=== PATIENT | male | born 1960 | race Caucasian/White ===

== ENCOUNTER 2018-09-10 16:30 | Emergency (ER) | payer MEDICAID ==
[~2018-09-10] VITALS: Ht 188 cm; Wt 158.2 kg
[~2018-09-10 16:30] MED LIST: FURO40TA4 PO; Hydralazine Hcl PO; POTA20TA10 PO
[2018-09-10 17:20] LABS: BASOPHILS # (AUTO) 0.1 X10'3 (0-0.2); BASOPHILS % (AUTO) 1.2 % (0-1); EOSINOPHILS # (AUTO) 0.5 X10'3 (0-0.9); HEMATOCRIT 43.9 % (42.0-52.0); HEMOGLOBIN 14.8 g/dl (14.0-17.9); LYMPHOCYTES % (AUTO) 22.5 % (21-51); MEAN CORPUSCULAR HEMOGLOBIN 30.6 PG (27.0-31.0); MEAN CORPUSCULAR HGB CONC 33.8 g/dL (33.0-36.5); MEAN CORPUSCULAR VOLUME 90.4 FL (78-98); MEAN PLATELET VOLUME 9.9 FL (7.4-10.4); MONOCYTES # (AUTO) 0.8 X10'3 (0-0.9); MONOCYTES % (AUTO) 9.4 % (2-12); NEUTROPHILS # (AUTO) 5.6 X10'3 (1.8-7.7); NEUTROPHILS % (AUTO) 61.9 % (42-75); PLATELET COUNT 284 X10'3 (140-440); RED BLOOD COUNT 4.86 X10'6 (4.70-6.10); RED CELL DISTRIBUTION WIDTH 13.6 % (11.5-14.5); WHITE BLOOD COUNT 9.1 X10'3 (4.5-11.0)
[2018-09-10 17:36] LABS: ALANINE AMINOTRANSFERASE 55 U/L (12-78); ALBUMIN 3.2 G/DL (3.4-5.0); ALBUMIN/GLOBULIN RATIO 0.8 (1.1-1.5); ALKALINE PHOSPHATASE 132 IU/L (46-116); ANION GAP 9 (8-16); ASPARTATE AMINO TRANSFERASE 28 U/L (10-37); BILIRUBIN,TOTAL 0.3 MG/DL (0.1-1.0); BLOOD UREA NITROGEN 18 MG/DL (7-18); BUN/CREATININE RATIO 20.7 (5.4-32.0); CALCIUM 8.9 MG/DL (8.5-10.1); CHLORIDE 106 MMOL/L (99-107); CREATININE 0.87 MG/DL (0.60-1.10); GLUCOSE 80 MG/DL (70-104); POTASSIUM 4.3 MMOL/L (3.5-5.1); SODIUM 141 MMOL/L (135-145); TOTAL CARBON DIOXIDE 25.9 MMOL/L (24-32); TOTAL PROTEIN 7.4 G/DL (6.4-8.2); eGFR 90 ML/MIN
[2018-09-10 17:49] LABS: PARTIAL THROMBOPLASTIN TIME 33 SECONDS (22-32); PROTHROMBIN TIME 10.2 SECONDS (9.0-12.0)
[2018-09-10 18:15] VITALS: BP 140/115
== END 2018-09-10 19:09 | disposition home or self-care (01) ==
LOC: ER 16:30
DX: R60.9 Edema, unspecified (principal); R06.02 Shortness of breath; Z88.0 Allergy status to penicillin; Z79.899 Other long term (current) drug therapy
CPT/HCPCS: 36415; 71045; 80053; 84484; 85025; 85610; 85730; 93005; 99284

== ENCOUNTER 2019-05-04 04:15 | Inpatient (IN) | payer MEDICAID ==
[~2019-05-04] VITALS: Ht 188 cm; Wt 135.0 kg
[2019-05-04 04:47] LABS: BASOPHILS % (AUTO) 0.3 % (0-1); EOSINOPHILS # (AUTO) 0.5 X10'3 (0-0.9); EOSINOPHILS % (AUTO) 4.5 % (0-6); HEMATOCRIT 43.1 % (42.0-52.0); HEMOGLOBIN 14.7 g/dl (14.0-17.9); LYMPHOCYTES # (AUTO) 3.6 X10'3 (1.1-4.8); LYMPHOCYTES % (AUTO) 31.5 % (21-51); MEAN CORPUSCULAR HEMOGLOBIN 31.3 PG (27.0-31.0); MEAN CORPUSCULAR HGB CONC 34.2 g/dL (33.0-36.5); MEAN CORPUSCULAR VOLUME 91.5 FL (78-98); MONOCYTES % (AUTO) 8.8 % (2-12); NEUTROPHILS # (AUTO) 6.4 X10'3 (1.8-7.7); NEUTROPHILS % (AUTO) 54.9 % (42-75); PLATELET COUNT 264 X10'3 (140-440); RED CELL DISTRIBUTION WIDTH 13.6 % (11.5-14.5); WHITE BLOOD COUNT 11.6 X10'3 (4.5-11.0)
[2019-05-04 04:56] LABS: PARTIAL THROMBOPLASTIN TIME 29 SECONDS (22-32)
[2019-05-04 04:59] LABS: ALANINE AMINOTRANSFERASE 35 U/L (12-78); ALBUMIN 3.2 G/DL (3.4-5.0); ALBUMIN/GLOBULIN RATIO 0.8 (1.1-1.5); ALKALINE PHOSPHATASE 139 IU/L (46-116); ANION GAP 7 (8-16); ASPARTATE AMINO TRANSFERASE 20 U/L (10-37); BILIRUBIN,TOTAL 0.2 MG/DL (0.1-1.0); BLOOD UREA NITROGEN 11 MG/DL (7-18); BUN/CREATININE RATIO 11.7 (5.4-32.0); CALCIUM 8.9 MG/DL (8.5-10.1); CHLORIDE 105 MMOL/L (99-107); CREATININE 0.94 MG/DL (0.60-1.10); GLUCOSE 160 MG/DL (70-104); POTASSIUM 3.8 MMOL/L (3.5-5.1); SODIUM 138 MMOL/L (135-145); TOTAL CARBON DIOXIDE 26.3 MMOL/L (24-32); TOTAL PROTEIN 7.4 G/DL (6.4-8.2); eGFR 82 ML/MIN
[2019-05-04] MEDS ORDERED: iohexol 350MG/ML 100ml bottle IV ONE (04:59)
[2019-05-04] MEDS ORDERED: morphine 4 MG/ML inj SYRINge IV ONE ×2 (05:00→05:40)
[2019-05-04 05:32] LABS: D-DIMER 0.91 MG/L FEU (0-0.50)
[2019-05-04] MEDS ORDERED: nitroGLYCERIN 0.4mg/hour patch TD ONE (06:15)
[2019-05-04] MEDS ORDERED: aspirin 81mg tab.chew PO ONE (06:15)
--- NOTE | 2019-05-04 07:59 | NUR ---
PT UP AMBULATING TO BR FOR [facility]. HOSPITALIST HERE TO ADMIT PT.
[2019-05-04 08:32] LABS: CLARITY,URINE CLEAR (Clear); COLOR,URINE STRAW (Yellow); GLUCOSE, URINE NEGATIVE (Neg); KETONES,URINE NEGATIVE (Neg); LEUKOCYTE ESTERASE ,URINE NEGATIVE (Neg); NITRITES, URINE NEGATIVE (Neg); OCCULT BLOOD,URINE NEGATIVE (Neg); PH,URINE 7.5 (4.8-8.0); PROTEIN,URINE NEGATIVE (Neg); UROBILINOGEN,URINE 0.2 E.U/dL (0.2-1.0)
[2019-05-04 08:33] LABS: UA COLLECTION TYPE CLN CATCH MIDSTREAM
[2019-05-04] MEDS ORDERED: normal saline 1000ml 1,000 ML IV SCH (08:33)
[2019-05-04] MEDS ORDERED: HYDROcodone/acetaminophen 5mg/325mg tablet PO PRN (08:35)
[2019-05-04] MEDS ORDERED: mag hydrox/Alum hydrox/simeth 30ml oral suspension PO PRN (08:35)
[2019-05-04] MEDS ORDERED: potassium Cl 20 mEq SR tablet PO PRN ×2 (08:35)
[2019-05-04] MEDS ORDERED: ondansetron/PF 4mg/2ml inj IV PRN (08:35)
[2019-05-04] MEDS ORDERED: magnesium 4gm in 100ml NS 100 ML IV PRN (08:35)
[2019-05-04] MEDS ORDERED: potassium CL 10mEq/100ml bag 100 ML IV PRN ×2 (08:35)
[2019-05-04] MEDS ORDERED: magnesium Cl slow-release 64mg tablet PO PRN (08:35)
[2019-05-04] MEDS ORDERED: acetaminophen 325mg tablet PO PRN ×2 (08:35)
[2019-05-04] MEDS ORDERED: magnesium 2GM in 50ml NS 50 ML IV PRN (08:35)
[2019-05-04] MEDS ORDERED: magnesium hydroxide 30ml (MOM) UD suspension PO PRN (08:35)
[2019-05-04 11:00] VITALS: BP 182/89
[2019-05-04] MEDS ORDERED: hydrALAZINE 20mg/ml inj. IV PRN (11:00)
[2019-05-04] MEDS ORDERED: FURO-149 PO (12:04)
[2019-05-04] MEDS ORDERED: LISI10TA4 PO (12:04)
[2019-05-04] MEDS ORDERED: ASPI81TA52 PO (12:04)
[2019-05-04] MEDS ORDERED: CARV3.122 PO (12:04)
[2019-05-04] MEDS: lisinopril 20mg tablet PO SCH (12:21)
--- NOTE | 2019-05-04 13:16 | NUR ---
PT REFUSED TO RN SKIN CHECK. MOST OF HIS SKIN WAS VISIBLE. SCAB ON LEFT HAND.
[2019-05-04] MEDS ORDERED: amLODIPine 5mg tablet PO SCH (13:20)
[2019-05-04 13:52] VITALS: BP 161/79
[2019-05-04 14:50] LABS: HEMATOCRIT 42.2 % (42.0-52.0); HEMOGLOBIN 14.6 g/dl (14.0-17.9); MEAN CORPUSCULAR HEMOGLOBIN 31.9 PG (27.0-31.0); MEAN CORPUSCULAR HGB CONC 34.6 g/dL (33.0-36.5); MEAN CORPUSCULAR VOLUME 92.3 FL (78-98); MEAN PLATELET VOLUME 10.5 FL (7.4-10.4); PLATELET COUNT 266 X10'3 (140-440); RED BLOOD COUNT 4.57 X10'6 (4.70-6.10); RED CELL DISTRIBUTION WIDTH 13.6 % (11.5-14.5); WHITE BLOOD COUNT 12.2 X10'3 (4.5-11.0)
[2019-05-04] MEDS: furosemide 40mg tablet PO SCH (15:49)
[2019-05-04 15:50] VITALS: BP 179/89
[2019-05-04] MEDS: HYDROcodone/acetaminophen 10/325mg tab PO PRN ×2 (15:51→20:41)
--- NOTE | 2019-05-04 17:39 | NUR ---
pt states he does not want a flu shot and please don't ask
[2019-05-04 17:52] VITALS: BP 171/84
--- NOTE | 2019-05-04 17:52 | NUR ---
PT HAD BP OF 171/84 GAVE HYDRALAZINE .5 ML
--- NOTE | 2019-05-04 18:23 | NUR ---
GAVE REPORT TO MALENA GUY RN
--- NOTE | 2019-05-04 18:30 | NUR ---
Patient in room [facility]. I have received report from LEI HOFF and had the opportunity to ask questions and assume patient care.
[2019-05-04 20:00] VITALS: BP 143/61
[2019-05-04] MEDS: carVEDilol 3.125mg tablet PO SCH (20:40)
[2019-05-04] MEDS ORDERED: temazepam 15mg capsule PO PRN (21:00)
[2019-05-04 22:45] LABS: HEMATOCRIT 42.4 % (42.0-52.0); HEMOGLOBIN 14.1 g/dl (14.0-17.9); MEAN CORPUSCULAR HEMOGLOBIN 30.9 PG (27.0-31.0); MEAN CORPUSCULAR HGB CONC 33.3 g/dL (33.0-36.5); MEAN CORPUSCULAR VOLUME 92.7 FL (78-98); MEAN PLATELET VOLUME 10.2 FL (7.4-10.4); PLATELET COUNT 258 X10'3 (140-440); RED BLOOD COUNT 4.58 X10'6 (4.70-6.10); RED CELL DISTRIBUTION WIDTH 13.7 % (11.5-14.5); WHITE BLOOD COUNT 13.1 X10'3 (4.5-11.0)
[2019-05-05] VITALS: BP 130/68
[2019-05-05] MEDS: HYDROcodone/acetaminophen 10/325mg tab PO PRN ×2 (03:46→20:05)
--- NOTE | 2019-05-05 06:24 | NUR ---
Problems reprioritized. Patient report given, questions answered & plan of care reviewed with LEI HOFF.
--- NOTE | 2019-05-05 06:54 | NUR ---
Patient in room [facility]. I have received report from MALENA GUY RN and had the opportunity to ask questions and assume patient care.
[2019-05-05 07:00] VITALS: BP_SYST 115; BP_SYST 154; BP_DIAS 51; BP_DIAS 59
[2019-05-05 07:02] LABS: HEMOGLOBIN 14.9 g/dl (14.0-17.9); MEAN CORPUSCULAR VOLUME 91.5 FL (78-98)
[2019-05-05 07:03] LABS: HEMATOCRIT 44.2 % (42.0-52.0); MEAN CORPUSCULAR HEMOGLOBIN 30.8 PG (27.0-31.0); MEAN CORPUSCULAR HGB CONC 33.7 g/dL (33.0-36.5); MEAN PLATELET VOLUME 10.1 FL (7.4-10.4); PLATELET COUNT 268 X10'3 (140-440); RED BLOOD COUNT 4.83 X10'6 (4.70-6.10); RED CELL DISTRIBUTION WIDTH 13.5 % (11.5-14.5); WHITE BLOOD COUNT 12.7 X10'3 (4.5-11.0)
[2019-05-05 07:38] LABS: ALBUMIN 2.8 G/DL (3.4-5.0); ANION GAP 6 (8-16); BLOOD UREA NITROGEN 6 MG/DL (7-18); BUN/CREATININE RATIO 8.3 (5.4-32.0); CALCIUM 8.1 MG/DL (8.5-10.1); CHLORIDE 103 MMOL/L (99-107); CREATININE 0.72 MG/DL (0.60-1.10); GLUCOSE 118 MG/DL (70-104); MAGNESIUM 1.6 MG/DL (1.5-2.4); POTASSIUM 3.8 MMOL/L (3.5-5.1); SODIUM 137 MMOL/L (135-145); TOTAL CARBON DIOXIDE 27.6 MMOL/L (24-32); eGFR > 90 ML/MIN
[2019-05-05 08:00] VITALS: BP 127/68
[2019-05-05] MEDS: lisinopril 20mg tablet PO SCH (08:00)
[2019-05-05] MEDS: K and/or MAG REPLACEMENT MC SCH (08:00)
[2019-05-05] MEDS: carVEDilol 3.125mg tablet PO SCH ×2 (08:29→20:04)
[2019-05-05] MEDS: amLODIPine 5mg tablet PO SCH (08:29)
[2019-05-05] MEDS: furosemide 40mg tablet PO SCH (08:30)
[2019-05-05] MEDS: lisinopril 10 MG tablet PO SCH (09:28)
[2019-05-05] MEDS: levoFLOXACIN-Levaquin 500mg/D5 100 ML IV SCH (12:51)
[2019-05-05 13:40] VITALS: BP 131/69
--- NOTE | 2019-05-05 15:03 | NUR ---
Student documentation: I have reviewed all interventions, assessments performed and documented by Charley MARY
--- NOTE | 2019-05-05 15:04 | NUR ---
Student Medication Administration: medication was reviewed, dispensed, administered and documented per hospital policy by Charley HSU
[2019-05-05 16:30] LABS: HEMOGLOBIN 16.1 g/dl (14.0-17.9); MEAN CORPUSCULAR HGB CONC 34.3 g/dL (33.0-36.5); MEAN CORPUSCULAR VOLUME 90.4 FL (78-98); PLATELET COUNT 268 X10'3 (140-440); RED CELL DISTRIBUTION WIDTH 13.5 % (11.5-14.5); WHITE BLOOD COUNT 12.7 X10'3 (4.5-11.0)
--- NOTE | 2019-05-05 18:30 | NUR ---
Patient in room [facility]. I have received report from LEI HOFF and had the opportunity to ask questions and assume patient care.
[2019-05-05 20:00] VITALS: BP 125/58
[2019-05-05 22:13] LABS: HEMATOCRIT 44.9 % (42.0-52.0); HEMOGLOBIN 15.2 g/dl (14.0-17.9); MEAN CORPUSCULAR HEMOGLOBIN 30.8 PG (27.0-31.0); MEAN CORPUSCULAR VOLUME 90.7 FL (78-98); MEAN PLATELET VOLUME 9.8 FL (7.4-10.4); PLATELET COUNT 269 X10'3 (140-440); RED BLOOD COUNT 4.95 X10'6 (4.70-6.10); RED CELL DISTRIBUTION WIDTH 13.2 % (11.5-14.5); WHITE BLOOD COUNT 13.8 X10'3 (4.5-11.0)
[2019-05-06] VITALS: BP 112/58
[2019-05-06 06:20] LABS: HEMATOCRIT 46.3 % (42.0-52.0); HEMOGLOBIN 15.6 g/dl (14.0-17.9); MEAN CORPUSCULAR HEMOGLOBIN 30.8 PG (27.0-31.0); MEAN CORPUSCULAR HGB CONC 33.7 g/dL (33.0-36.5); MEAN CORPUSCULAR VOLUME 91.5 FL (78-98); MEAN PLATELET VOLUME 9.5 FL (7.4-10.4); PLATELET COUNT 258 X10'3 (140-440); RED BLOOD COUNT 5.05 X10'6 (4.70-6.10); RED CELL DISTRIBUTION WIDTH 13.8 % (11.5-14.5); WHITE BLOOD COUNT 12.5 X10'3 (4.5-11.0)
--- NOTE | 2019-05-06 06:30 | NUR ---
Problems reprioritized. Patient report given, questions answered & plan of care reviewed with ADELIA HOFF AND THANH HOFF.
--- NOTE | 2019-05-06 06:41 | NUR ---
Patient in room [facility]. I have received report from Abner and had the opportunity to ask questions and assume patient care.
[2019-05-06 06:47] LABS: ALBUMIN 2.9 G/DL (3.4-5.0); ANION GAP 7 (8-16); BLOOD UREA NITROGEN 13 MG/DL (7-18); BUN/CREATININE RATIO 14.4 (5.4-32.0); CALCIUM 8.9 MG/DL (8.5-10.1); CHLORIDE 105 MMOL/L (99-107); GLUCOSE 92 MG/DL (70-104); MAGNESIUM 1.9 MG/DL (1.5-2.4); POTASSIUM 4.1 MMOL/L (3.5-5.1); SODIUM 140 MMOL/L (135-145); TOTAL CARBON DIOXIDE 27.9 MMOL/L (24-32); eGFR 86 ML/MIN
[2019-05-06] MEDS: levoFLOXACIN-Levaquin 500mg/D5 100 ML IV SCH (07:18)
[2019-05-06] MEDS: lisinopril 10 MG tablet PO SCH (07:27)
[2019-05-06] MEDS: amLODIPine 5mg tablet PO SCH (07:35)
[2019-05-06] MEDS: carVEDilol 3.125mg tablet PO SCH (07:36)
[2019-05-06 08:00] VITALS: BP 124/60
[2019-05-06] MEDS: K and/or MAG REPLACEMENT MC SCH (08:00)
[2019-05-06] MEDS ORDERED: furosemide 20MG tablet PO SCH (08:00)
[2019-05-06] MEDS ORDERED: iohexol 300mg/ml 100ml inj. ONE (10:05)
[2019-05-06 12:00] VITALS: BP 118/66
[2019-05-06 13:48] LABS: HEMATOCRIT 46.3 % (42.0-52.0); HEMOGLOBIN 15.7 g/dl (14.0-17.9); MEAN CORPUSCULAR HEMOGLOBIN 30.9 PG (27.0-31.0); MEAN CORPUSCULAR HGB CONC 33.9 g/dL (33.0-36.5); MEAN CORPUSCULAR VOLUME 91.4 FL (78-98); PLATELET COUNT 276 X10'3 (140-440); RED BLOOD COUNT 5.07 X10'6 (4.70-6.10); RED CELL DISTRIBUTION WIDTH 13.5 % (11.5-14.5); WHITE BLOOD COUNT 11.4 X10'3 (4.5-11.0)
[2019-05-06] MEDS ORDERED: NOR5T PO (17:04)
--- NOTE | 2019-05-06 18:14 | NUR ---
Problems reprioritized. Patient report given, questions answered & plan of care reviewed with Abner HOFF.
--- NOTE | 2019-05-06 18:30 | NUR ---
Patient in room [facility]. I have received report from ADELIA HOFF and had the opportunity to ask questions and assume patient care. PATIENT READY FOR DISCHARGE WAITING FOR SON TO PICK HIM UP.
--- NOTE | 2019-05-06 19:00 | NUR ---
PATIENT LEFT FOR DISCHARGE HOME WITH SON IN A WHEELCHAIR WITH STAFF TO THE FRONT DOOR.
[2019-05-06] MEDS ORDERED: lactobacillus rhamnosus 10,000 MMU CELLS/CAPSULE PO SCH (20:00)
[2019-05-06] MEDS ORDERED: diatr meglu/diatrizoate 30ml oral sol.-(3 dose) bottle PO SCH (21:00)
== END 2019-05-06 19:02 | disposition home or self-care (01) | DRG 424 ==
LOC: ER 04:16 → SUR 3N 08:20 → ED HOLD 08:20 → UNDOADMOB 08:20 → ED HOLD 08:33 → UNDOADMOB 08:33 → OBSVTOIN 08:33 → INTOOBSV 08:33 → SUR 3N 10:53 → ED HOLD 10:53 → SUR 3N 05-06 08:20 → OBSVTOIN 05-06 08:20
PROVIDERS: ADMIT Family Medicine; ATTEND Internal Medicine
PROC: B32T1ZZ Computerized Tomography (CT Scan) of Left Pulmonary Artery using Low Osmolar Contrast (ICD-10-PCS; principal; 2019-05-04)
PROC: B3201ZZ Computerized Tomography (CT Scan) of Thoracic Aorta using Low Osmolar Contrast (ICD-10-PCS; 2019-05-04)
PROC: B32S1ZZ Computerized Tomography (CT Scan) of Right Pulmonary Artery using Low Osmolar Contrast (ICD-10-PCS; 2019-05-04)
DX: D35.01 Benign neoplasm of right adrenal gland (principal); I11.0 Hypertensive heart disease with heart failure; I50.32 Chronic diastolic (congestive) heart failure; E27.49 Other adrenocortical insufficiency; R07.81 Pleurodynia; J43.2 Centrilobular emphysema; E11.9 Type 2 diabetes mellitus without complications; I25.10 Atherosclerotic heart disease of native coronary artery without angina pectoris; F17.200 Nicotine dependence, unspecified, uncomplicated; Z88.0 Allergy status to penicillin; I25.2 Old myocardial infarction; Z59.0 Homelessness; Z86.73 Personal history of transient ischemic attack (TIA), and cerebral infarction without residual deficits; Z80.9 Family history of malignant neoplasm, unspecified
CPT/HCPCS: 36415; 71045; 71275; 74174; 74178; 80048; 80053; 81003; 82948; 83735; 84484; 85025; 85027; 85379; 85610; 85730; 86885; 86900; 86901; 87081; 93005; 96365; 96375; 96376; 97116; 97161; 99285; G0378; J0360; J1956; J2270; J7030; Q9967

== ENCOUNTER 2020-03-19 00:38 | Emergency (ER) | payer OTHER ==
[~2020-03-19] VITALS: Ht 188 cm; Wt 150.0 kg
[~2020-03-19 00:38] MED LIST changes: +ALBU8HFA PO; +ASPI81TA52 PO; +ATOR20TA PO; +CARV6.253 PO; +HYDR-4069 PO; -Hydralazine Hcl PO; +LISI40TA4 PO; +POTA-82 PO; -POTA20TA10 PO; +PRED20TA PO
[2020-03-19] MEDS ORDERED: LORazepam 2 mg/ml vial IV ONE (00:45)
[2020-03-19 00:49] VITALS: BP 146/80
[2020-03-19] MEDS ORDERED: HYDR-4069 PO (00:57)
[2020-03-19] MEDS ORDERED: METF500T PO (00:57)
[2020-03-19] MEDS ORDERED: FURO-150 PO (00:57)
[2020-03-19] MEDS ORDERED: AMLO2.5T2 PO (00:57)
[2020-03-19 01:13] LABS: ALANINE AMINOTRANSFERASE 39 U/L (12-78); ALBUMIN 3.4 G/DL (3.4-5.0); ALBUMIN/GLOBULIN RATIO 0.9 (1.1-1.5); ALKALINE PHOSPHATASE 103 IU/L (46-116); ANION GAP 6 (8-16); ASPARTATE AMINO TRANSFERASE 20 U/L (10-37); BILIRUBIN,TOTAL 0.5 MG/DL (0.1-1.0); BLOOD UREA NITROGEN 20 MG/DL (7-18); BUN/CREATININE RATIO 16.8 (5.4-32.0); CALCIUM 8.6 MG/DL (8.5-10.1); CHLORIDE 102 MMOL/L (99-107); CREATININE 1.19 MG/DL (0.60-1.10); GLUCOSE 119 MG/DL (70-104); POTASSIUM 4.7 MMOL/L (3.5-5.1); SODIUM 135 MMOL/L (135-145); TOTAL CARBON DIOXIDE 26.7 MMOL/L (24-32); TOTAL PROTEIN 7.4 G/DL (6.4-8.2); eGFR 62 ML/MIN
[2020-03-19 01:17] LABS: D-DIMER 1.76 MG/L FEU (0-0.50)
[2020-03-19] MEDS ORDERED: iohexol 350MG/ML 100ml bottle IV ONE (01:28)
[2020-03-19 01:39] LABS: BASOPHILS # (AUTO) 0.1 X10'3 (0-0.2); EOSINOPHILS # (AUTO) 0.2 X10'3 (0-0.9); HEMOGLOBIN 16.5 g/dl (14.0-17.9)
[2020-03-19 01:41] LABS: BASOPHILS % (AUTO) 0.7 % (0-1); EOSINOPHILS % (AUTO) 1.4 % (0-6); HEMATOCRIT 49.9 % (42.0-52.0); LYMPHOCYTES # (AUTO) 3.2 X10'3 (1.1-4.8); LYMPHOCYTES % (AUTO) 21.5 % (21-51); MEAN CORPUSCULAR HEMOGLOBIN 31.2 PG (27.0-31.0); MEAN CORPUSCULAR HGB CONC 33.1 g/dL (33.0-36.5); MEAN CORPUSCULAR VOLUME 94.2 FL (78-98); MEAN PLATELET VOLUME 11.3 FL (7.4-10.4); MONOCYTES # (AUTO) 0.9 X10'3 (0-0.9); MONOCYTES % (AUTO) 5.9 % (2-12); NEUTROPHILS # (AUTO) 10.5 X10'3 (1.8-7.7); NEUTROPHILS % (AUTO) 70.5 % (42-75); PLATELET COUNT 262 X10'3 (140-440); RED BLOOD COUNT 5.29 X10'6 (4.70-6.10); RED CELL DISTRIBUTION WIDTH 13.2 % (11.5-14.5)
[2020-03-19 02:32] LABS: LARGE PLATELETS MODERATE; PLATELET ESTIMATE NORMAL
== END 2020-03-19 03:43 ==
LOC: ER 00:39 → EEVIPCON 00:39 → ER 03:43
DX: R07.89 Other chest pain (principal); R11.0 Nausea; I25.10 Atherosclerotic heart disease of native coronary artery without angina pectoris; I10 Essential (primary) hypertension; I25.2 Old myocardial infarction; J44.9 Chronic obstructive pulmonary disease, unspecified; E11.9 Type 2 diabetes mellitus without complications; Z86.73 Personal history of transient ischemic attack (TIA), and cerebral infarction without residual deficits; Z98.61 Coronary angioplasty status; Z88.0 Allergy status to penicillin; Z79.82 Long term (current) use of aspirin; Z79.899 Other long term (current) drug therapy
CPT/HCPCS: 36415; 71045; 71275; 80053; 83735; 83880; 84484; 85008; 85025; 85379; 93005; 96374; 99285; J2060; Q9967

== ENCOUNTER 2020-04-23 15:42 | Emergency (ER) | payer OTHER ==
[~2020-04-23] VITALS: Ht 188 cm; Wt 159.0 kg
[~2020-04-23 15:42] MED LIST changes: -ALBU8HFA PO; +AMLO2.5T2 PO; -ASPI81TA52 PO; +FURO-150 PO; +METF500T PO; -PRED20TA PO
--- NOTE | 2020-04-23 16:18 | NUR ---
xray at bedside, iv started and labs drawn.
[2020-04-23] MEDS ORDERED: nitroGLYCERIN 0.4mg SUBLingual tab SL ONE (16:29)
[2020-04-23] MEDS ORDERED: nitroGLYCERIN 1gm ointment UD TP ONE (16:35)
--- NOTE | 2020-04-23 16:36 | NUR ---
Pt BP improved and Pt has 9/10 CP, spoke with Provider and 1 nitro given.
[2020-04-23 16:54] LABS: BASOPHILS # (AUTO) 0.1 X10'3 (0-0.2); BASOPHILS % (AUTO) 0.7 % (0-1); EOSINOPHILS # (AUTO) 0.2 X10'3 (0-0.9); EOSINOPHILS % (AUTO) 1.1 % (0-6); HEMATOCRIT 44.2 % (42.0-52.0); HEMOGLOBIN 14.7 g/dl (14.0-17.9); LYMPHOCYTES # (AUTO) 1.7 X10'3 (1.1-4.8); LYMPHOCYTES % (AUTO) 11.4 % (21-51); MEAN CORPUSCULAR HEMOGLOBIN 30.5 PG (27.0-31.0); MEAN CORPUSCULAR HGB CONC 33.1 g/dL (33.0-36.5); MEAN CORPUSCULAR VOLUME 92.1 FL (78-98); MEAN PLATELET VOLUME 10.2 FL (7.4-10.4); MONOCYTES # (AUTO) 0.9 X10'3 (0-0.9); MONOCYTES % (AUTO) 6.4 % (2-12); NEUTROPHILS # (AUTO) 11.9 X10'3 (1.8-7.7); NEUTROPHILS % (AUTO) 80.4 % (42-75); PLATELET COUNT 290 X10'3 (140-440); RED CELL DISTRIBUTION WIDTH 13.3 % (11.5-14.5); WHITE BLOOD COUNT 14.8 X10'3 (4.5-11.0)
[2020-04-23 17:11] LABS: ALANINE AMINOTRANSFERASE 43 U/L (12-78); ALBUMIN 3.3 G/DL (3.4-5.0); ALBUMIN/GLOBULIN RATIO 0.9 (1.1-1.5); ALKALINE PHOSPHATASE 90 IU/L (46-116); ANION GAP 7 (8-16); ASPARTATE AMINO TRANSFERASE 20 U/L (10-37); BILIRUBIN,TOTAL 0.4 MG/DL (0.1-1.0); BLOOD UREA NITROGEN 18 MG/DL (7-18); BUN/CREATININE RATIO 14.5 (5.4-32.0); CALCIUM 9.2 MG/DL (8.5-10.1); CHLORIDE 105 MMOL/L (99-107); CREATININE 1.24 MG/DL (0.60-1.10); GLUCOSE 109 MG/DL (70-104); POTASSIUM 4.4 MMOL/L (3.5-5.1); SODIUM 137 MMOL/L (135-145); TOTAL CARBON DIOXIDE 25.4 MMOL/L (24-32); TOTAL PROTEIN 6.8 G/DL (6.4-8.2); eGFR 59 ML/MIN
[2020-04-23 17:14] LABS: PARTIAL THROMBOPLASTIN TIME 32 SECONDS (22-32)
[2020-04-23] MEDS ORDERED: iohexol 350MG/ML 100ml bottle IV ONE (17:17)
--- NOTE | 2020-04-23 17:37 | NUR ---
PT BACK FRO CT
[2020-04-23 19:36] VITALS: BP 138/92
== END 2020-04-23 20:41 | disposition home or self-care (01) ==
LOC: ER 15:42
DX: R07.89 Other chest pain (principal); R06.02 Shortness of breath; R10.9 Unspecified abdominal pain; I25.10 Atherosclerotic heart disease of native coronary artery without angina pectoris; I10 Essential (primary) hypertension; I25.2 Old myocardial infarction; J44.9 Chronic obstructive pulmonary disease, unspecified; E11.9 Type 2 diabetes mellitus without complications; Z86.73 Personal history of transient ischemic attack (TIA), and cerebral infarction without residual deficits; Z98.61 Coronary angioplasty status; Z79.899 Other long term (current) drug therapy
CPT/HCPCS: 36415; 71045; 71275; 74175; 80053; 83880; 84484; 85025; 85610; 85730; 93005; 99285; Q9967